=== PATIENT | male | born 1990 | race Two or more races ===

== ENCOUNTER 2023-10-28 11:51 | Emergency (ER) | payer SELFPAY ==
[~2023-10-28] VITALS: Ht 185.4 cm; Wt 90.3 kg
[2023-10-28 13:06] VITALS: BP 118/72; PULSE 50; RESP 20; TEMP 98.9; O2SAT 96
[2023-10-28] MEDS ORDERED: KETOROLAC TROMETH 60MG/2ML VIAL IM ONE (13:15)
== END 2023-10-28 13:56 | disposition home or self-care (01) ==
LOC: ER 11:51
DX: S43.085A Other dislocation of left shoulder joint, initial encounter (principal); W18.39XA Other fall on same level, initial encounter; Y93.23 Activity, snow (alpine) (downhill) skiing, snowboarding, sledding, tobogganing and snow tubing; Y92.89 Other specified places as the place of occurrence of the external cause; Y99.8 Other external cause status
CPT/HCPCS: 23650; 73020; 73030; 96372; 99284; J1885